=== PATIENT | male | born 1945 | race Caucasian/White ===

== ENCOUNTER 2023-11-24 15:10 | Inpatient (IN) | payer MEDICARE, OTHER ==
[2023-11-24 15:40] LABS: #Monocytes 0.5 thou/uL (0.11-0.59); #Neutrophils 6.8 thou/uL (1.40-6.50); %Basophils 0.3 % (0.0-1.0); %Eosinophils 0.4 % (0.0-10.0); %Lymphocytes 32.7 % (21.0-51.0); %Monocytes 4.4 % (0.0-10.0); %Neutrophils 61.7 % (42.0-75.0); Hematocrit 38.8 % (42.0-52.0); Hemoglobin 13.3 g/dL (14.0-18.0); Mean Corpuscular HGB CONC 34.3 g/dL (32.0-36.0); Mean Corpuscular Hemoglobin 33.6 pg (27.0-31.0); Mean Platelet Volume 10.4 fL (7.4-10.4); Platelet Count 216 10x3/uL (130-400); RBC Distribution Width 12.9 % (11.5-14.5); Red Blood Cell (RBC) Count 3.96 mill/uL (4.70-6.10)
[2023-11-24 16:25] LABS: ALT (SGPT) 14 U/L (8-55); AST (SGOT) 21 U/L (5-34); Albumin 4.5 g/dL (3.4-4.8); Alkaline Phosphatase 77 U/L (40-110); Anion Gap 18 mmol/L (10-20); BUN (Urea Nitrogen) 44 mg/dL (8.4-25.7); Bilirubin, Total 1.8 mg/dL (0.2-1.2); Calc. Creatinine Clearance 0 mL/min (70-130); Calcium 10.5 mg/dL (7.8-10.44); Carbon Dioxide 19 mmol/L (23-31); Chloride 104 mmol/L (98-107); Estimated GFR 13; Globulin 3.1 g/dL (2.4-3.5); Glucose 159 mg/dL (83-110); Potassium 5.4 mmol/L (3.5-5.1); Protein, Total 7.6 g/dL (5.8-8.1); Sodium 136 mmol/L (136-145)
[2023-11-24] MEDS ORDERED: Ondansetron PF 4 MG/2 ML Vial IVP PRN (17:45)
[2023-11-24] MEDS: Sodium Chloride 0.9% 1,000 ML IV SCH (19:30)
[2023-11-24 20:24] VITALS: BMI 25.8
[2023-11-24] MEDS: Apixaban 5 MG TAB PO SCH (21:07)
[2023-11-24] MEDS: Melatonin 3 MG TAB PO PRN (21:07)
[2023-11-25 04:35] LABS: Hematocrit 32.4 % (42.0-52.0); Hemoglobin 10.8 g/dL (14.0-18.0); Manual Diff?? YES; Mean Corpuscular HGB CONC 33.3 g/dL (32.0-36.0); Mean Corpuscular Hemoglobin 32.5 pg (27.0-31.0); Mean Corpuscular Volume 97.6 fl (78.0-98.0); Mean Platelet Volume 10.3 fL (7.4-10.4); Platelet Count 150 10x3/uL (130-400); RBC Distribution Width 12.8 % (11.5-14.5); Red Blood Cell (RBC) Count 3.32 mill/uL (4.70-6.10); White Blood Cell (WBC) Count 7.7 10x3/uL (4.8-10.8)
[2023-11-25 04:55] LABS: Delete Auto Diff?? YES
[2023-11-25 05:12] LABS: Anion Gap 15 mmol/L (10-20); BUN (Urea Nitrogen) 44 mg/dL (8.4-25.7); Calc. Creatinine Clearance 18 mL/min (70-130); Calcium 8.9 mg/dL (7.8-10.44); Carbon Dioxide 19 mmol/L (23-31); Chloride 107 mmol/L (98-107); Estimated GFR 16; Glucose 95 mg/dL (83-110); Sodium 137 mmol/L (136-145)
[2023-11-25 05:39] LABS: CellaVision Operator ID lab.sh2; Eosinophils 3 % (0-10); Lymphocytes 42 % (21-51); Macrocytosis SLIGHT = 6-15 cells HPF (0-5); Monocytes 3 % (0-10); Neutrophil 53 % (42-75); Ovalocytes SLIGHT = 2-5 cells HPF (0-1); Platelet Adequacy Comment Platelets Normal; Polychromasia SLIGHT = 2-3 cells HPF (0-2); Smudge Cells 18.8 %; Total Cell Count 101
[2023-11-25] MEDS: predniSONE 5 MG TAB PO SCH (08:11)
[2023-11-25] MEDS ORDERED: Cyclobenzaprine 10 MG TAB PO PRN (14:20)
[2023-11-25] MEDS ORDERED: traMADol HCl 50 MG TAB PO PRN (14:20)
[2023-11-25] MEDS ORDERED: Apixaban 5 MG TAB PO SCH (21:00)
[2023-11-25] MEDS: Tamsulosin HCl 0.4 MG CAP PO SCH (21:05)
[2023-11-25] MEDS: Metoprolol Tartrate 25 MG TAB PO SCH (21:05)
[2023-11-25] MEDS: Zolpidem Tartrate 5 MG TAB PO PRN (23:11)
[2023-11-26 05:11] LABS: Hemoglobin 11.3 g/dL (14.0-18.0); Manual Diff?? YES; Mean Corpuscular HGB CONC 33.2 g/dL (32.0-36.0); Mean Corpuscular Hemoglobin 32.5 pg (27.0-31.0); Mean Corpuscular Volume 97.7 fl (78.0-98.0); Mean Platelet Volume 10.4 fL (7.4-10.4); Platelet Count 150 10x3/uL (130-400); RBC Distribution Width 13.1 % (11.5-14.5); Red Blood Cell (RBC) Count 3.48 mill/uL (4.70-6.10); White Blood Cell (WBC) Count 7.8 10x3/uL (4.8-10.8)
[2023-11-26 05:13] LABS: Delete Auto Diff?? YES
[2023-11-26 05:37] LABS: Band 1 % (5-11); CellaVision Operator ID LAB.CLH1; Hypochromia SLIGHT = 6-15 cells HPF (0-5); Lymphocytes 47 % (21-51); Neutrophil 53 % (42-75); Platelet Adequacy Comment Platelets Normal; Total Cell Count 101
[2023-11-26 05:46] LABS: Anion Gap 13 mmol/L (10-20); BUN (Urea Nitrogen) 37 mg/dL (8.4-25.7); Calc. Creatinine Clearance 22 mL/min (70-130); Calcium 9.1 mg/dL (7.8-10.44); Carbon Dioxide 18 mmol/L (23-31); Chloride 111 mmol/L (98-107); Estimated GFR 20; Glucose 82 mg/dL (83-110); Magnesium 1.7 mg/dL (1.6-2.6); Potassium 4.1 mmol/L (3.5-5.1); Sodium 138 mmol/L (136-145)
[2023-11-26] MEDS: Magnesium Chloride 64 MG TAB PO SCH (08:02)
[2023-11-26] MEDS: Allopurinol 100 MG TAB PO SCH (08:02)
[2023-11-26] MEDS: cycloSPORINE, Modified 25 MG CAP PO SCH (08:03)
[2023-11-26] MEDS: cycloSPORINE, Modified 100 MG CAP PO SCH (08:04)
[2023-11-26] MEDS ORDERED: predniSONE 5 MG TAB PO SCH (09:00)
[2023-11-26] MEDS: Sodium Chloride 0.9% 1,000 ML IV SCH (12:01)
[2023-11-26] MEDS: Metoprolol Tartrate 25 MG TAB PO SCH ×2 (13:01→20:18)
[2023-11-26] MEDS: hydrALAZINE 20 MG/ML VIAL SLOW IVP PRN (14:48)
[2023-11-27 04:47] LABS: Hematocrit 34.9 % (42.0-52.0); Hemoglobin 11.7 g/dL (14.0-18.0); Mean Corpuscular HGB CONC 33.5 g/dL (32.0-36.0); Mean Corpuscular Hemoglobin 32.5 pg (27.0-31.0); Mean Corpuscular Volume 96.9 fl (78.0-98.0); Mean Platelet Volume 10.7 fL (7.4-10.4); Platelet Count 169 10x3/uL (130-400); RBC Distribution Width 13.1 % (11.5-14.5); White Blood Cell (WBC) Count 8.9 10x3/uL (4.8-10.8)
[2023-11-27 04:59] LABS: Delete Auto Diff?? YES; Manual Diff?? YES
[2023-11-27 05:46] LABS: Anion Gap 14 mmol/L (10-20); BUN (Urea Nitrogen) 34 mg/dL (8.4-25.7); Calc. Creatinine Clearance 25 mL/min (70-130); Calcium 9.2 mg/dL (7.8-10.44); Carbon Dioxide 21 mmol/L (23-31); CellaVision Operator ID lab.sh2; Chloride 111 mmol/L (98-107); Eosinophils 1 % (0-10); Estimated GFR 23; Glucose 75 mg/dL (83-110); Lymphocytes 49 % (21-51); Monocytes 13 % (0-10); Neutrophil 37 % (42-75); Platelet Adequacy Comment Platelets Normal; Potassium 4.5 mmol/L (3.5-5.1); RBC Morphology Within Normal Limits; Smudge Cells 10.8 %; Sodium 141 mmol/L (136-145); Total Cell Count 102
[2023-11-27] MEDS: Acetaminophen 325 MG TAB PO PRN (08:49)
[2023-11-27 12:21] VITALS: BP 138/81; TEMP 97.7
[2023-11-27] MEDS ORDERED: Metoprolol Tartrate 50 MG TAB PO SCH (21:00)
== END 2023-11-27 13:35 | disposition home or self-care (01) | DRG 683 ==
LOC: ERS 15:10 → 2SW 17:46
PROVIDERS: ADMIT Internal Medicine; ATTEND Internal Medicine
DX: N17.9 Acute kidney failure, unspecified (principal); E87.20 Acidosis, unspecified; Z94.0 Kidney transplant status; E87.5 Hyperkalemia; Z66 Do not resuscitate; E83.52 Hypercalcemia; I12.9 Hypertensive chronic kidney disease with stage 1 through stage 4 chronic kidney disease, or unspecified chronic kidney disease; I48.91 Unspecified atrial fibrillation; N18.4 Chronic kidney disease, stage 4 (severe); M10.9 Gout, unspecified; Z88.8 Allergy status to other drugs, medicaments and biological substances; Z79.899 Other long term (current) drug therapy; Z79.01 Long term (current) use of anticoagulants; Z95.0 Presence of cardiac pacemaker; Z96.652 Presence of left artificial knee joint; D63.1 Anemia in chronic kidney disease; D72.829 Elevated white blood cell count, unspecified
CPT/HCPCS: 36415; 76770; 80048; 80053; 80158; 83735; 85025; 93005; 96360; J0360; J7050; J7502; J7512; J7515